=== PATIENT | female | born 2000 | race Caucasian/White ===

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

== ENCOUNTER 2020-05-13 13:15 | Emergency (ER) | payer SELFPAY ==
[2020-05-13 13:23] VITALS: BP 136/71
[2020-05-13] MEDS ORDERED: DIPHENHYDRAMINE HCL 25 MG CAPSULE PO ONE (13:51)
[2020-05-13] MEDS ORDERED: PREDNISONE 20 MG TABLET PO ONE (13:51)
--- NOTE | 2020-05-13 14:03 | ER Document Report ---
HPI - HPI Patient complains to provider of: allergic reaction Time Seen by Provider: 05/13/20 13:46 Pain Level: Denies Context: 19-year-old female presents to the emergency room complaining of possible allergic reaction. 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 Patient states that today while moving the plane bedding again wearing gloves she inhaled some of the dust even though she was wearing a mask and started feeling like her throat was itchy. Did not take any medications for her symptoms. She denies rash, denies any shortness of breath denies any difficulty breathing. States that her throat just feels itchy. No history of previous allergic reactions. Denies any chance of Associated Symptoms: None Exacerbated by: Denies Relieved by: Denies Similar symptoms previously: Yes - 2 weeks ago Recently seen / treated by doctor: No - ROS Systems Reviewed and Negative: Yes All other systems reviewed and negative - CONSTITUTIONAL Constitutional: DENIES: Fever - EENT EENT: DENIES: Sore Throat, Nasal Drainage-Clear, Nasal Drainage-Purulent, Edvin estion Notes: Itchy throat - NEURO Neurology: DENIES: Headache, Weakness - RESPIRATORY Respiratory: DENIES: Trouble Breathing, Coughing - REPRODUCTIVE Reproductive: DENIES: : - DERM Skin Color: Normal Past Medical History - General Information source: Patient - Social History Smoking Status: Never Smoker Chew tobacco use (# tins/day): No Frequency of alcohol use: Occasional Drug Abuse: None Family History: None Renal/ Medical History: Denies: Hx Peritoneal Dialysis - Immunizations Immunizations up to date: Yes Vertical Provider Document - CONSTITUTIONAL Agree With Documented VS: Yes Exam Limitations: No Limitations General Appearance: No Apparent Distress - INFECTION CONTROL TRAVEL OUTSIDE OF THE [place] IN LAST 30 DAYS: No - HEENT HEENT: Atraumatic, Normal ENT Exam, Normocephalic. negative: Pharyngeal Exudate, Pharyngeal Tenderness Notes: Speaking in full sentences. Handling her secretions. Tolerates p.o. fluids. No pharyngeal erythema or swelling. - NECK Neck: Normal Inspection, Supple, Thyroid Normal - RESPIRATORY Respiratory: Breath Sounds Normal, No Respiratory Distress, Chest Non-Tender - CARDIOVASCULAR Cardiovascular: Regular Rate, Regular Rhythm, No Murmur - NEURO Level of Consciousness: Awake, Alert, Appropriate Motor/Sensory: No Motor Deficit, No Sensory Deficit - DERM Integumentary: Warm, Dry, No Rash Course - Re-evaluation Re-evalutation: 05/13/20 13:52 Patient is in no acute distress at this time. Handling her own secretions. No shortness of breath or difficulty breathing. No hives. Patient given p.o. prednisone p.o. Benadryl will be discharged home with outpatient follow-up with Worker's [employer]. through her employer for referral. She is to continue with the prednisone daily. Benadryl, Zyrtec, or Claritin as needed for itching. Patient was given strict return to the emergency room guidelines. Return for any new or worsening symptoms. All questions were answered. Patient verbalized understanding and agrees with plan of care. - Vital Signs Vital signs: Temp Pulse Resp BP Pulse Ox 98.1 F 77 18 136/71 H 100 05/13/20 13:21 05/13/20 13:21 05/13/20 13:21 05/13/20 13:21 05/13/20 13:21 - Laboratory Results Critical Laboratory Results Reviewed: No Critical Results - Radiology Results Critical Radiology Results Reviewed: No Critical Results Discharge - Discharge Clinical Impression: Allergic reaction Qualifiers: Encounter type: initial encounter Qualified Code(s): T78.40XA - Allergy, unspecified, initial encounter Condition: Good Disposition: HOME, SELF-CARE Instructions: Acute Allergic Reaction ([facility]) Additional Instructions: Benadryl, Zyrtec, or Claritin as needed for itching. Start the prednisone tomorrow. Follow-up with your employer for referral to Worker's Compensation. Return to the emergency room for any new or worsening symptoms. Prescriptions: Prednisone [Deltasone 20 mg Tablet] See Protocol PO DAILY 9 Days #15 tablet Forms: Return to Work
== END 2020-05-13 14:15 | disposition home or self-care (01) ==
LOC: ER 13:15
DX: T78.40XA Allergy, unspecified, initial encounter (principal); R09.89 Other specified symptoms and signs involving the circulatory and respiratory systems
CPT/HCPCS: 99283; J7512